=== PATIENT | male | born 1975 | race Caucasian/White ===

== ENCOUNTER 2021-10-06 18:46 | Emergency (ER) | payer OTHER ==
[~2021-10-06] VITALS: Ht 182.9 cm; Wt 84.4 kg
[2021-10-06 19:42] LABS: ABSOLUTE MONOCYTES 0.6 thou/uL (0.0-1.2); BASOPHILS 0.5 %; EOSINOPHILS 0.2 %; HEMATOCRIT 46.4 % (42.0-52.0); HEMOGLOBIN 15.6 gm/dL (14.0-18.0); LYMPHOCYTES 11.7 %; MCH 30.6 pg (26.0-34.0); MCHC 33.5 g/dL (28.0-37.0); MCV 91.1 fL (80.0-100.0); MONOCYTES 6.4 %; MPV 7.2 fl. (7.2-11.1); NUCLEATED RBCS 0 /100WBC; PLATELET COUNT* 257 thou/uL (150-400); POLYS 81.2 %; RBC 5.09 mil/uL (4.50-6.00); RDW-CV 13.5 % (10.5-14.5); WBC 8.6 thou/uL (4.0-11.0)
[2021-10-06 19:50] LABS: CALCIUM 8.9 mg/dL (8.5-10.1); CREATININE 0.9 mg/dL (0.6-1.3); POTASSIUM 3.1 mmol/L (3.5-5.1)
[2021-10-06 19:57] LABS: TOTAL BILIRUBIN 0.4 mg/dL (<0.1-1.0); TOTAL PROTEIN 7.9 g/dL (6.4-8.2)
[2021-10-06 21:44] VITALS: BP 155/78
--- NOTE | 2021-10-07 09:54 | EKG ---
[place] [address] ELECTROCARDIOGRAM REPORT Name: SELAM LLANES Room: [facility]#: [id number] Admission: 10/06/21 Attend Phys: Discharge: 10/06/21 Date of : 73 Date of Service: 10/06/21 1850 Report #: [id number] THIS REPORT FOR: //name// [facility] ED Test Date: 2021-10-06 Test Time: 18:50:55 Pat Name: SELAM LLANES Department: Room: Gender: Urologist: : 1975 Requested By: Jodee Ruano Order Number: [id number] MD: Anastacio Wilson Measurements Intervals [place] Rate: 120 P: 80 ID: [id number] QRS: 4 QRSD: 106 T: 59 QT: 354 QTc: 501 Interpretive Statements Sinus tachycardia Probable left ventricular hypertrophy Prolonged QT interval Baseline wander in lead(s) II,III,aVF No previous ECG available for comparison Electronically Signed On 10-07-2021 9:54:23 ABRASIVE SAWYER by Anastacio Wilson [email or web address] <ELECTRONICALLY SIGNED> By: Anastacio Wilson MD, [facility] 10/07/21 0954 [id number] 49 Anastacio Wilson MD, [facility] /EPI
== END 2021-10-06 21:44 | disposition home or self-care (01) ==
LOC: M.ERS 18:46
PROVIDERS: Personal Emergency Response Attendant
DX: E16.2 Hypoglycemia, unspecified (principal)